=== PATIENT | male | born 1980 | race Caucasian/White ===

== ENCOUNTER → 2021-08-28 08:10 | Outpatient (CLI) | payer SELFPAY ==
--- NOTE | 2021-08-28 08:20 | DI.RAD.S_ITS ---
PROCEDURE: XR KNEE LT 3V INDICATIONS: KNEE PAIN TECHNIQUE: 3 views of the knee were acquired. COMPARISON: None. FINDINGS: Bones: No fractures or dislocations. No suspicious bony lesions. Soft tissues: No joint effusion identified. No suspicious soft tissue calcifications. IMPRESSION: No significant osseous abnormality. Dictated by: Korey Cisse M.D. on 08/28/2021 at 8:58 Approved by: Korey Cisse M.D. on 08/28/2021 at 9:00
== END ==
PROVIDERS: Referring Provider Physician Assistant; Visit Provider Physician Assistant
DX: M25.562 Pain in left knee (principal)
CPT/HCPCS: 73562